=== PATIENT | female | born 1990 | race Caucasian/White ===

== ENCOUNTER 2017-11-28 00:10 | Emergency (ER) | payer OTHER ==
[~2017-11-28] VITALS: Ht 157.5 cm; Wt 104.5 kg
[2017-11-28] MEDS ORDERED: LIDOCAINE HCL 1% 10 ML VIAL INJ ONE (01:15)
[2017-11-28] MEDS ORDERED: PERTUSS(ACELL),DIPH,TET VAC/PF 0.5 ML VIAL IM ONE (01:45)
[2017-11-28 02:08] VITALS: BP 138/89
[2017-11-28] MEDS ORDERED: BACITRACIN 0.9 GM PACKET OINTMENT TP ONE ×2 (02:15)
== END 2017-11-28 02:44 | disposition home or self-care (01) ==
LOC: EMS 00:12
DX: S91.112A Laceration without foreign body of left great toe without damage to nail, initial encounter (principal); W25.XXXA Contact with sharp glass, initial encounter; Y93.89 Activity, other specified; Y92.89 Other specified places as the place of occurrence of the external cause; Y99.8 Other external cause status
CPT/HCPCS: 12001; 90471; 90715; 99283; J3490